=== PATIENT | female | born 1960 | race Caucasian/White ===

== ENCOUNTER 2020-11-09 14:49 | Outpatient (CLI) | payer BC ==
[2020-11-09] MEDS ORDERED: LOSA100T57 PO (16:31)
[2020-11-09] MEDS ORDERED: HYDR25TA5 PO (16:31)
[2020-11-09] MEDS ORDERED: FENO48TA15 PO (16:31)
[2020-11-09] MEDS ORDERED: NEBI10TA2 PO (16:31)
[2020-11-09 16:48] LABS: BASOPHILS # (AUTO) 0.1 X10'3 (0-0.2); BASOPHILS % (AUTO) 0.8 % (0-1); EOSINOPHILS # (AUTO) 0.3 X10'3 (0-0.9); EOSINOPHILS % (AUTO) 2.6 % (0-6); LYMPHOCYTES # (AUTO) 1.9 X10'3 (1.1-4.8); MEAN CORPUSCULAR HEMOGLOBIN 27.2 PG (27.0-31.0); MEAN CORPUSCULAR VOLUME 82.5 FL (78-98); MEAN PLATELET VOLUME 8.2 FL (7.4-10.4); MONOCYTES # (AUTO) 0.7 X10'3 (0-0.9); MONOCYTES % (AUTO) 6.6 % (2-12); NEUTROPHILS # (AUTO) 7.1 X10'3 (1.8-7.7); PRE OP HEMATOCRIT 35.7 % (35.0-45.0); PRE OP HEMOGLOBIN 11.8 g/dL (12.0-16.0); PRE OP PLATELET COUNT 353 X10'3 (140-440); RED BLOOD COUNT 4.32 X10'6 (4.20-5.60); RED CELL DISTRIBUTION WIDTH 14.6 % (11.5-14.5)
[2020-11-09 16:55] LABS: ALBUMIN 3.5 G/DL (3.4-5.0); ALBUMIN/GLOBULIN RATIO 0.7 (1.1-1.5); ALKALINE PHOSPHATASE 114 IU/L (46-116); BLOOD UREA NITROGEN 22 MG/DL (7-18); BUN/CREATININE RATIO 36.7 (6.6-38.0); CHLORIDE 102 MMOL/L (99-107); PRE OP ALT 27 U/L (30-65); PRE OP ANION GAP 9 (8-16); PRE OP AST 12 U/L (10-37); PRE OP BILIRUB, TOTAL 0.2 MG/DL (0.0-1.0); PRE OP GLUCOSE 98 MG/DL (70-104); PRE OP POTASSIUM 3.4 MMOL/L (3.4-5.1); PRE OP SODIUM 140 MMOL/L (135-145); TOTAL CARBON DIOXIDE 29.2 MMOL/L (24-32); TOTAL PROTEIN 8.2 G/DL (6.4-8.2); eGFR > 90 ML/MIN
== END 2020-11-09 23:59 | disposition home or self-care (01) ==
LOC: PRE-OP 14:49 → EDSTATUS 11-15 10:00
PROVIDERS: ATTEND Orthopaedic Surgery
DX: Z01.812 Encounter for preprocedural laboratory examination (principal); Z20.822 Contact with and (suspected) exposure to COVID-19
CPT/HCPCS: 36415; 71046; 80053; 85025; 87081; 93005; U0003

== ENCOUNTER 2021-02-07 07:51 | Inpatient (IN) | payer BC ==
[2021-02-01 15:11] LABS: BASOPHILS % (AUTO) 0.5 % (0-1); EOSINOPHILS # (AUTO) 0.3 X10'3 (0-0.9); EOSINOPHILS % (AUTO) 3.2 % (0-6); LYMPHOCYTES # (AUTO) 1.9 X10'3 (1.1-4.8); LYMPHOCYTES % (AUTO) 20.8 % (21-51); MEAN CORPUSCULAR HEMOGLOBIN 27.9 PG (27.0-31.0); MEAN CORPUSCULAR HGB CONC 33.3 g/dL (33.0-36.5); MEAN CORPUSCULAR VOLUME 83.7 FL (78-98); MONOCYTES # (AUTO) 0.6 X10'3 (0-0.9); MONOCYTES % (AUTO) 6.3 % (2-12); NEUTROPHILS # (AUTO) 6.3 X10'3 (1.8-7.7); NEUTROPHILS % (AUTO) 69.2 % (42-75); PRE OP HEMATOCRIT 32.9 % (35.0-45.0); PRE OP PLATELET COUNT 353 X10'3 (140-440); RED BLOOD COUNT 3.94 X10'6 (4.20-5.60); RED CELL DISTRIBUTION WIDTH 14.3 % (11.5-14.5)
[2021-02-01 15:42] LABS: ALBUMIN 3.2 G/DL (3.4-5.0); ALBUMIN/GLOBULIN RATIO 0.7 (1.1-1.5); ALKALINE PHOSPHATASE 101 IU/L (46-116); BLOOD UREA NITROGEN 24 MG/DL (7-18); BUN/CREATININE RATIO 26.7 (6.6-38.0); CHLORIDE 105 MMOL/L (99-107); PRE OP ALT 26 U/L (30-65); PRE OP ANION GAP 8 (8-16); PRE OP AST 12 U/L (10-37); PRE OP BILIRUB, TOTAL 0.1 MG/DL (0.0-1.0); PRE OP GLUCOSE 117 MG/DL (70-104); PRE OP SODIUM 142 MMOL/L (135-145); TOTAL CARBON DIOXIDE 29.5 MMOL/L (24-32); TOTAL PROTEIN 7.7 G/DL (6.4-8.2); eGFR 64 ML/MIN
[2021-02-01 15:48] LABS: PRE OP POTASSIUM 3.3 MMOL/L (3.4-5.1)
[2021-02-07] VITALS (17 sets, daily range): BP systolic 112–175; BP diastolic 71–97
[~2021-02-07] VITALS: Ht 154.9 cm; Wt 90.6 kg
[~2021-02-07 07:51] MED LIST: DOCUMENT DATE & TIME OF BETA-BLOCKER PO ONE; FENO48TA15 PO; HYDR25TA5 PO; LOSA100T57 PO; NEBI10TA2 PO; TRANEXAMIC ACID 1 GM IN NACL,ISO-OS 100 ML IV ONE; albuterol 2.5 MG/3 ML nebule NEB ONE; cefazolin/dext.iso 2gm/100ml IV ONE; famotidine 20mg tablet PO ONE; ringers solution, lacted 1,000 ML IV SCH; tetracaine 1% (10mg/ml) pres. free inj. ONE; vancomycin 1,500 MG in NS 300ml IV soln IV ONE
[2021-02-07] MEDS ORDERED: ketorolac trometh. 30mg/ml inj. ONE (10:37)
[2021-02-07] MEDS ORDERED: morphine 10mg/ml inj. ONE (10:37)
[2021-02-07] MEDS ORDERED: vancomycin 1,000mg inj ONE (10:37)
[2021-02-07] MEDS ORDERED: epiNEPHrine 1 mg/ml inj ONE (10:38)
[2021-02-07] MEDS ORDERED: ROPIVAcaine 0.5% (5mg/ml) 30ml vial ONE ×2 (10:38→14:05)
[2021-02-07] MEDS ORDERED: BUPIVAcaine/PF 7.5mg/ml (0.75%) 10ml vial ONE (11:17)
[2021-02-07] MEDS ORDERED: fentaNYL/PF 50MCG/1 ML 2ML syringe ONE (11:21)
[2021-02-07] MEDS ORDERED: MIDAZolam 1mg/ml 10ml vial ONE (11:21)
[2021-02-07] MEDS ORDERED: morphine 2 MG/ML inj. syringe IV PRN (11:40)
[2021-02-07] MEDS ORDERED: ringers solution, lacted 1,000 ML IV SCH (11:40)
[2021-02-07] MEDS ORDERED: ondansetron/PF 4mg/2ml inj IV PRN ×2 (11:40→14:20)
[2021-02-07] MEDS ORDERED: morphine 4 MG/ML inj SYRINge IV PRN (11:40)
[2021-02-07] MEDS ORDERED: meperidine/PF 25mg/ml syringe IV PRN ×3 (11:40)
[2021-02-07] MEDS ORDERED: proCHLORperazine 10 MG/2 ml inj IV PRN (11:40)
[2021-02-07] MEDS ORDERED: ROPIVAcaine 0.2%/PF PUMP/bolus 545 ML ADDCANAL SCH (11:40)
[2021-02-07] MEDS ORDERED: propofol inj 20 ML IV ONE (11:52)
[2021-02-07] MEDS ORDERED: HYDROmorphone 1 mg/ml syringe IV PRN ×2 (14:20→17:50)
[2021-02-07] MEDS ORDERED: HYDROmorphone inj. 0.5 MG/0.5 ML DISP.SYRIN IV PRN (14:20)
[2021-02-07] MEDS ORDERED: bisacodyl 10mg suppository rectal RC PRN (14:20)
[2021-02-07] MEDS ORDERED: magnesium hydroxide 30ml (MOM) UD suspension PO PRN (14:20)
[2021-02-07] MEDS ORDERED: diphenhydrAMINE 25mg capsule PO PRN ×2 (14:20)
[2021-02-07] MEDS ORDERED: acetaminophen 325mg tablet PO PRN (14:20)
[2021-02-07] MEDS ORDERED: oxyCODONE IR 5mg (immed. release) tablet PO PRN (14:20)
--- NOTE | 2021-02-07 14:39 | NUR ---
Received from OR via ORTHO BED , accompanied by Anesthesiologist JUAN and report given by Anesthesiolgist. PATIENT WITH 20GPIV IN RIGHT UE RUNNING LR AT 100. SPINAL SENSATION LEVEL AT T-2, T-3. DENIES PAIN LEFT KNEE DRESSING IS CDI, ON Q PAIN SYSTEM ATTACHED UPON ARRIVAL AND PATIENT CHANGED INTO HOSPITAL GOWN. VSS. SCDS DONNED. Addendum: 02/07/21 at 1456 by Leroy Day RN, RN Amended: Links added.
[2021-02-07] MEDS: ROPIVAcaine 0.2% (10 MG/5 ML) BOLUS INJECTION ADDCANAL PRN ×2 (14:58→14:59)
--- NOTE | 2021-02-07 15:39 | NUR ---
PATIENT HAS MET ALL CRITERIA FOR TRANSFER TO THE SURGICAL/[facility]/PCU/ORTHO/ICU FLOOR. VSS. DRESSINGS INTACT. BED LOW, CALL LIGHT PRESENT AND 2 RAILS UP. RN PRESENT TO ACCEPT CARE OF PATIENT AND REPORT HAS BEEN CALLED. ALL QUESTIONS ANSWERED TO ACCEPTING DILEEP BURNS. VSS. DRESSING CDI. NO C.O PAIN, URINE CLEAR YELLOW IN ATRIUM OF CATHETER. ONE BAG OF BELONGINGS AND A SINGLE POINT CANE. (PURPLE) DELIVERED. 4012A Addendum: 02/07/21 at 1548 by Leroy Mobley - DILEEP RN Amended: Links added.
[2021-02-07] MEDS ORDERED: tranexamic acid inj. 900 MG in normal saline 100ml IV soln 100 ML IV ONE (17:30)
[2021-02-07] MEDS: oxyCODONE IR 5mg (immed. release) tablet PO PRN ×2 (17:45→22:05)
[2021-02-07] MEDS ORDERED: cyclobenzaprine 10mg tablet PO PRN (17:50)
--- NOTE | 2021-02-07 18:30 | NUR ---
report to Lissy FALK
[2021-02-07] MEDS: ROPIVAcaine 0.2%/PF PUMP/bolus 545 ML ADDCANAL SCH (19:36)
[2021-02-07] MEDS: potassium cl 20mEq in 1/2 NS 1,000 ML IV SCH ×2 (19:37→22:07)
[2021-02-07] MEDS ORDERED: vancomycin/NS 1 GM ADD-VANTAGE 250 ML IV SCH (20:00)
[2021-02-07] MEDS ORDERED: aspirin 325mg tablet PO SCH (20:00)
[2021-02-07] MEDS: ceFAZolin/D5W- 1GM premix 50 ML IV SCH (20:22)
[2021-02-07] MEDS: acetaminophen 325mg tablet PO SCH (20:29)
[2021-02-07] MEDS: sennosides 8.6mg tablet PO SCH (20:29)
[2021-02-07] MEDS: losartan 50mg tablet PO SCH (20:30)
[2021-02-07] MEDS: gabapentin 300mg capsule PO SCH (20:30)
[2021-02-07] MEDS: metoprolol tartrate 50mg tablet PO SCH (20:34)
[2021-02-08 01:45] VITALS: BP 120/70
[2021-02-08] MEDS: acetaminophen 325mg tablet PO SCH ×4 (02:14→21:46)
[2021-02-08] MEDS: ceFAZolin/D5W- 1GM premix 50 ML IV SCH (02:14)
[2021-02-08] MEDS: oxyCODONE IR 5mg (immed. release) tablet PO PRN ×5 (05:19→21:45)
[2021-02-08 06:00] VITALS: BP 144/74
--- NOTE | 2021-02-08 06:10 | NUR ---
received report from vinita stiles
--- NOTE | 2021-02-08 06:12 | NUR ---
pt working with PT. pain medication and ice given. educated about activity with assist. pt anxious to eat breakfast as she has not eaten much in last 2 days. no nausea. noted pt needs encouragement for using IS.
[2021-02-08 06:57] LABS: BASOPHILS % (AUTO) 0.4 % (0-1); EOSINOPHILS % (AUTO) 0.4 % (0-6); HEMATOCRIT 29.1 % (35.0-45.0); HEMOGLOBIN 9.6 g/dl (12.0-16.0); LYMPHOCYTES # (AUTO) 1.3 X10'3 (1.1-4.8); LYMPHOCYTES % (AUTO) 13.9 % (21-51); MEAN CORPUSCULAR HEMOGLOBIN 27.7 PG (27.0-31.0); MEAN CORPUSCULAR VOLUME 83.9 FL (78-98); MEAN PLATELET VOLUME 8.2 FL (7.4-10.4); MONOCYTES # (AUTO) 0.9 X10'3 (0-0.9); MONOCYTES % (AUTO) 9.8 % (2-12); NEUTROPHILS # (AUTO) 7.2 X10'3 (1.8-7.7); NEUTROPHILS % (AUTO) 75.5 % (42-75); PLATELET COUNT 294 X10'3 (140-440); RED BLOOD COUNT 3.48 X10'6 (4.20-5.60); RED CELL DISTRIBUTION WIDTH 14.5 % (11.5-14.5); WHITE BLOOD COUNT 9.6 X10'3 (4.5-11.0)
[2021-02-08 07:33] LABS: ANION GAP 7 (8-16); CHLORIDE 105 MMOL/L (99-107); POTASSIUM 4.5 MMOL/L (3.5-5.1); SODIUM 140 MMOL/L (135-145); TOTAL CARBON DIOXIDE 27.8 MMOL/L (24-32)
[2021-02-08] MEDS: fenofibrate 48mg tablet PO SCH (07:35)
[2021-02-08] MEDS: gabapentin 300mg capsule PO SCH ×3 (07:35→21:43)
[2021-02-08] MEDS: metoprolol tartrate 50mg tablet PO SCH ×2 (07:36→21:46)
[2021-02-08] MEDS: HYDROchlorothiazide 25mg tablet PO SCH (07:37)
[2021-02-08] MEDS: aspirin 325mg tablet PO SCH (07:37)
[2021-02-08 10:00] VITALS: BP 155/74
[2021-02-08] MEDS: potassium cl 20mEq in 1/2 NS 1,000 ML IV SCH ×3 (10:18→22:20)
--- NOTE | 2021-02-08 11:23 | NUR ---
Joint surgery consult: Pt s/p L knee surgery this admit and seen by JIMENEZ for written/verbal high protein ed w /RD contact information provided. Pt reports typically does not eat breakfast; JIMENEZ encouraged protein ONS options at breakfast for optimal wound healing post-op. Addendum: 02/08/21 at [address] Amended: Links added.
[2021-02-08 14:00] VITALS: BP 135/62
[2021-02-08 18:00] VITALS: BP 160/82
--- NOTE | 2021-02-08 18:34 | NUR ---
gave report to vinita stiles
[2021-02-08] MEDS: sennosides 8.6mg tablet PO SCH (21:43)
[2021-02-08] MEDS: losartan 50mg tablet PO SCH (21:43)
[2021-02-08 21:45] VITALS: BP 139/73
[2021-02-08] MEDS: celeCOXIB 100mg capsule PO SCH (21:46)
[2021-02-09] MEDS: acetaminophen 325mg tablet PO SCH ×2 (01:59→08:11)
[2021-02-09] MEDS: oxyCODONE IR 5mg (immed. release) tablet PO PRN ×2 (04:20→08:10)
[2021-02-09] MEDS: ROPIVAcaine 0.2%/PF PUMP/bolus 545 ML ADDCANAL SCH (04:20)
[2021-02-09 06:00] VITALS: BP 123/55
[2021-02-09 06:39] LABS: BASOPHILS % (AUTO) 0.4 % (0-1); EOSINOPHILS # (AUTO) 0.1 X10'3 (0-0.9); EOSINOPHILS % (AUTO) 0.6 % (0-6); HEMATOCRIT 27.3 % (35.0-45.0); LYMPHOCYTES # (AUTO) 1.2 X10'3 (1.1-4.8); LYMPHOCYTES % (AUTO) 11.7 % (21-51); MEAN CORPUSCULAR HEMOGLOBIN 27.6 PG (27.0-31.0); MEAN CORPUSCULAR HGB CONC 33.1 g/dL (33.0-36.5); MEAN CORPUSCULAR VOLUME 83.4 FL (78-98); MEAN PLATELET VOLUME 7.9 FL (7.4-10.4); MONOCYTES # (AUTO) 1.1 X10'3 (0-0.9); MONOCYTES % (AUTO) 10.7 % (2-12); NEUTROPHILS % (AUTO) 76.6 % (42-75); PLATELET COUNT 264 X10'3 (140-440); RED BLOOD COUNT 3.28 X10'6 (4.20-5.60); RED CELL DISTRIBUTION WIDTH 14.5 % (11.5-14.5); WHITE BLOOD COUNT 10.4 X10'3 (4.5-11.0)
[2021-02-09] MEDS: HYDROchlorothiazide 25mg tablet PO SCH (08:11)
[2021-02-09] MEDS: fenofibrate 48mg tablet PO SCH (08:11)
[2021-02-09] MEDS: celeCOXIB 100mg capsule PO SCH (08:11)
[2021-02-09] MEDS: gabapentin 300mg capsule PO SCH (08:11)
[2021-02-09] MEDS: aspirin 325mg tablet PO SCH (08:11)
[2021-02-09] MEDS: metoprolol tartrate 50mg tablet PO SCH (08:11)
[2021-02-09 10:00] VITALS: BP 131/64
[2021-02-09] MEDS ORDERED: acetaminophen 325mg tablet PO PRN (14:20)
== END 2021-02-09 11:20 | disposition home or self-care (01) | DRG 470 ==
LOC: UNDOADMIN 07:51 → PAS IN 07:51 → ORTHO 4S 15:40
PROVIDERS: ADMIT Orthopaedic Surgery; ATTEND Orthopaedic Surgery
PROC: 0SRD0J9 Replacement of Left Knee Joint with Synthetic Substitute, Cemented, Open Approach (ICD-10-PCS; principal; 2021-02-07 11:17)
DX: M17.12 Unilateral primary osteoarthritis, left knee (principal); D50.0 Iron deficiency anemia secondary to blood loss (chronic); Z20.822 Contact with and (suspected) exposure to COVID-19
CPT/HCPCS: Z7506; Z7508; 36415; 73560; 80051; 80053; 82948; 85025; 87081; 94640; 94664; 94760; 97116; 97162; 97530; A4215; A6454; A7000; C1713; C1758; C1776; C9520; G0378; J0171; J0690; J1170; J1885; J2250; J2270; J2405; J2704; J2795; J3010; J3370; J3480; J3490; J7040; J7120; U0003; U0005